=== PATIENT | female | born 1990 | race African-American/Black ===

== ENCOUNTER 2019-05-28 12:20 | Emergency (ER) | payer OTHER ==
[~2019-05-28] VITALS: Ht 162.6 cm; Wt 77.1 kg
[~2019-05-28 12:20] MED LIST: ACETAMINOPHEN-1 EAC1 PO; NOHOMEMEDICATIONS; NORCO 10-325 T1 EACH PO; NORCO 5-325 TA1 EACH PO; PHENERGAN 25 MG25 M1 PO; ZPAK PO
[2019-05-28 13:24] LABS: ABSOLUTE NEUTROPHILS 9.3 thou/uL (1.4-8.2); BASOPHILS 0.6 % (0.0-2.0); EOSINOPHILS 1.8 % (0.0-3.0); HEMATOCRIT 39.9 % (37.0-47.0); HEMOGLOBIN 13.1 gm/dL (12.0-15.0); LYMPHOCYTES 18.2 % (24.0-44.0); MCHC 32.8 g/dL (28.0-37.0); MCV 85.3 fL (80.0-100.0); MONOCYTES 9.4 % (1.0-8.0); PLATELET COUNT 390 thou/uL (150-400); RBC 4.68 mil/uL (4.20-5.00); RDW 13.8 % (10.5-14.5); WBC 13.3 thou/uL (4.0-11.0)
[2019-05-28 13:31] LABS: ANION GAP 10 mmol/L (7-16); BUN 11 mg/dL (7-18); CALCIUM 8.9 mg/dL (8.5-10.1); CHLORIDE 104 mmol/L (98-107); CO2 24 mmol/L (21-32); CREATININE 0.8 mg/dL (0.6-1.0); GLUCOSE 97 mg/dL (74-106); POTASSIUM 3.9 mmol/L (3.5-5.1); SODIUM 138 mmol/L (136-145)
[2019-05-28 13:41] LABS: ALBUMIN 3.6 g/dL (3.4-5.0); SGOT 18 U/L (15-37); SGPT 27 U/L (30-65); TOTAL BILIRUBIN 0.3 mg/dL (<0.1-1.0); TOTAL PROTEIN 7.9 g/dL (6.4-8.2); TROPONIN-I <0.06 ng/mL (<0.06)
[2019-05-28] MEDS ORDERED: NAPROSYN500 MG PO (14:25)
[2019-05-28 14:35] VITALS: BP 126/79
--- NOTE | 2019-05-29 07:48 | EKG ---
[address] [address] ELECTROCARDIOGRAM REPORT Name: FRANKDAVE Sean Room #: [facility]#: [id number] ������������������ Admission: 05/28/19 ������������������ Attend Phys: Discharge: 05/28/19 ������������������ Date of : 88 Report #: [id number] ����������������������������������������������������������������� [id number] THIS REPORT FOR: //name// [facility] ED Test Date: 2019-05-28 Test Time: 12:57:37 Pat Name: DAVE MARIE Department: Room: Gender: F Cloth Mender: DIONISIO : 1990 Requested By: Nora Dunne Order Number: [id number] MD: Nicolas Hung Measurements Intervals [place] Rate: 82 P: 69 [place]: 125 QRS: 75 QRSD: 83 T: 42 QT: 362 QTc: 423 Interpretive Statements Sinus rhythm Normal tracing No previous ECG available for comparison Electronically Signed On 05-29-2019 7:48:40 CDT by Nicolas Hung [email or web address] ��������������������������������������������� <ELECTRONICALLY SIGNED> ���������������������������������������� By: Nicolas Hung MD, [facility] ��������������������������������������������� 05/29/19 0748 1257 [id number] Nicolas Hung MD, FACC /EPI
== END 2019-05-28 14:35 | disposition home or self-care (01) ==
LOC: ER 12:20
PROVIDERS: Physician Assistant
DX: R00.2 Palpitations (principal); R07.89 Other chest pain; R06.00 Dyspnea, unspecified; J00 Acute nasopharyngitis [common cold]; Z90.49 Acquired absence of other specified parts of digestive tract